=== PATIENT | male | born 1960 | race Caucasian/White ===

== ENCOUNTER 2017-07-17 19:35 | Observation (INO) | payer BC ==
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
[2017-07-17] MEDS: Sodium Chloride 0.9% 1000 ML 1,000 ML IV SCH (20:34)
[2017-07-17 20:40] LABS: BASOPHIL % 0.6 % (0.0-0.4); Basophil (Absolute #) 0.03 (0-0.4); Eosinophil % 3.3 % (0.00-5.0); Eosinophil (Absolute #) 0.18 (0-0.5); Granulocyte Absolute (ANC) 3.98 (1.4-6.9); Granulocytes % 73.9 % (36.0-66.0); Hematocrit 45.4 % (42-50); Lymphocyte (Absolute #) 0.66 (1.0-4.6); Lymphocytes % 12.2 % (24.0-44.0); Mean Cell Volume 93.2 fl (78-100); Mean Corpuscular Hemoglobin 34.9 pg (26-32); Mean Corpuscular Hgb Concent. 37.4 g/dl (32-36); Mean Platelet Volume 10.2 fl (6-9.5); Monocyte (Absolute #) 0.54 (0.0-1.3); Platelet Count 159 K/mm3 (150-450); Red Blood Count 4.87 M/mm3 (4.1-5.6); Red Cell Distribution Width 12.3 % (11.5-14.0); White Blood Count 5.4 K/mm3 (4.0-10.5)
[2017-07-17 20:53] LABS: INR 0.99 (0.8-3.0)
[2017-07-17 20:56] LABS: PTT 34.1 SECONDS (24.1-36.1)
[2017-07-17 20:57] LABS: ALBUMIN 4.5 g/dL (3.5-5.0); ALKALINE PHOSPHATASE 92 U/L (38-126); ANION GAP 12.4 MEQ/L (5-15); BLOOD UREA NITROGEN 12 mg/dL (9-20); CHLORIDE 88 mmol/L (98-107); CK-Creatinine Phosphokinase 58 U/L (55-170); Calcium 9.4 mg/dL (8.4-10.2); Carbon Dioxide 29 mmol/L (22-30); Creatinine 1 0.74 mg/dL (0.66-1.25); Glucose 111 mg/dL (74-106); Potassium 3.7 mmol/L (3.5-5.1); SGOT/AST 35 U/L (17-59); SGPT/ALT 37 U/L (0-50); SODIUM 125 mmol/L (137-145); Total Protein 7.5 g/dL (6.3-8.2)
[2017-07-17 21:06] LABS: NT PRO BNP 91.9 pg/mL (0-900)
[2017-07-17 21:50] LABS: Amphetamine,Urine NEGATIVE (NEGATIVE); Barbiturate,Urine NEGATIVE (NEGATIVE); Benzodiazepine,Urine NEGATIVE (NEGATIVE); Cocaine,Urine NEGATIVE (NEGATIVE); Methadone,Urine NEGATIVE (NEGATIVE); Opiate,Urine NEGATIVE (NEGATIVE); PCP,Urine NEGATIVE (NEGATIVE); THC,Urine NEGATIVE (NEGATIVE)
[2017-07-17] MEDS ORDERED: TYLENOL 325 MG PO PRN (22:16)
[2017-07-17] MEDS ORDERED: DUONEB 0.5-3 MG/3 ml Neb IH PRN (22:16)
[2017-07-17] MEDS ORDERED: Sodium Chloride 0.9% 1000 ML 1,000 ML IV SCH (22:30)
[2017-07-17] MEDS ORDERED: Ecotrin 325 MG ONE (23:07)
[2017-07-18 05:52] LABS: BASOPHIL % 0.4 % (0.0-0.4); Basophil (Absolute #) 0.02 (0-0.4); Eosinophil % 5.5 % (0.00-5.0); Eosinophil (Absolute #) 0.26 (0-0.5); Granulocyte Absolute (ANC) 2.81 (1.4-6.9); Granulocytes % 59.5 % (36.0-66.0); Hematocrit 44.4 % (42-50); Hemoglobin 16.1 gm/dl (12.5-18.0); Lymphocyte (Absolute #) 0.97 (1.0-4.6); Lymphocytes % 20.6 % (24.0-44.0); Mean Cell Volume 95.5 fl (78-100); Mean Corpuscular Hemoglobin 34.6 pg (26-32); Mean Corpuscular Hgb Concent. 36.3 g/dl (32-36); Mean Platelet Volume 10.1 fl (6-9.5); Monocyte (Absolute #) 0.66 (0.0-1.3); Platelet Count 148 K/mm3 (150-450); Red Blood Count 4.65 M/mm3 (4.1-5.6); Red Cell Distribution Width 12.5 % (11.5-14.0); White Blood Count 4.7 K/mm3 (4.0-10.5)
[2017-07-18] MEDS: Sodium Chloride 0.9% 1000 ML 1,000 ML IV SCH (06:25)
[2017-07-18 06:50] LABS: ANION GAP 11.7 MEQ/L (5-15); BLOOD UREA NITROGEN 11 mg/dL (9-20); CHLORIDE 94 mmol/L (98-107); Calcium 8.9 mg/dL (8.4-10.2); Carbon Dioxide 29 mmol/L (22-30); Glucose 109 mg/dL (74-106); SODIUM 131 mmol/L (137-145)
[2017-07-18 07:13] VITALS: BP 135/74; PULSE 67; O2SAT 93
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
[2017-07-18 09:34] LABS: Risk Ratio 4.1
[2017-07-18] MEDS ORDERED: hydroDIURIL 25 MG PO SCH (10:00)
[2017-07-18] MEDS ORDERED: NON-FORMULARY ITEM (Amlodipine Besylate 10 Mg [Norvasc 10 Mg] 10 MG) PO SCH (10:00)
[2017-07-18] MEDS ORDERED: VALSARTAN PO SCH (10:00)
[2017-07-18] MEDS ORDERED: Bystolic 5 MG PO SCH (10:00)
[2017-07-18] MEDS ORDERED: NORVASC 5 MG PO SCH (10:00)
[2017-07-18] MEDS ORDERED: DIOVAN 80 MG PO SCH (10:00)
[2017-07-18] MEDS ORDERED: [UNRECOGNIZED DRUG - OTHER] PO SCH (10:00)
[2017-07-18] MEDS ORDERED: HYDROCHLOROTHIAZIDE PO SCH (10:00)
[2017-07-18] MEDS ORDERED: NON-FORMULARY ITEM (Nebivolol Hcl [Bystolic] 10 MG) PO SCH (10:00)
--- NOTE | 2017-07-18 10:04 | XRAY ---
Exam: Two-view chest (3 images) from 07/17/2017. Indication: Syncope. Findings: Upright PA and 2 lateral images of the chest were obtained. The heart size and contour are normal. The yola and mediastinal structures appear unremarkable. There is mild hyperinflation of the chest. Correlate clinically regarding COPD. A prominent retrosternal airspace and mildly increased AP diameter of the chest are seen. I see no air space infiltrates, vascular congestion, or pleural fluid. No pneumothorax seen. There is minimal biapical pleural thickening/scarring. No abnormal soft tissue lung nodularity is seen. I see no acute osseous process. Mild degenerative changes within the thoracic spine and mild mid dorsal kyphosis are seen. Impression: 1. There is some hyperinflation of the lung cortez suggestive of COPD. Correlate clinically. 2. No focal pneumonic infiltrates, heart failure, or other acute cardiopulmonary disease is seen.
[2017-07-18] MEDS ORDERED: Ecotrin 325 MG PO ONE (22:13)
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
== END 2017-07-18 10:25 | disposition home or self-care (01) ==
LOC: ED 19:35 → MED SURG 22:57
PROVIDERS: ADMIT Family Medicine; ATTEND Family Medicine
DX: R55 Syncope and collapse (principal); I10 Essential (primary) hypertension; Z72.0 Tobacco use
CPT/HCPCS: 36000; 36415; 70450; 71046; 80048; 80053; 80061; 80307; 82550; 83721; 83880; 84484; 85025; 85379; 85610; 85730; 93005; 93041; 93268; 96360; 96361; 99285; G0103; A9270-GY; G0378

== ENCOUNTER 2020-03-30 10:45 | Emergency (ER) | payer BC ==
[2020-03-30] MEDS ORDERED: NORCO 5/325 MG PO ONE (11:00)
[2020-03-30 11:02] VITALS: BP 176/91; PULSE 83; O2SAT 95
[2020-03-30] MEDS ORDERED: NORCO 5/325 MG ONE (11:06)
--- NOTE | 2020-03-30 11:21 | ERPHSYRPT ---
- History of Present Illness Time Seen by Provider: 03/30/20 10:53 Source: patient Exam Limitations: no limitations Patient Subjective Stated Complaint: Pt states "Last night I was putting ice melt out and stepped into a hidden hole with my left foot and ankle went under. I could walk on it a little yesterday but this morning I cannot walk on it." Triage Nursing Assessment: Pt alert and oriented X 3, skin pwd pt ambulates with a limp. Pt left foot and ankle swollen and bruised. CSM X 4. Physician History: 59 years old male presented in the ER with chief complaint of fall with twisting left ankle yesterday. Patient report he was able to walk yesterday but today he is having moderate to severe sharp pain in the left ankle especially on the lateral aspect associated with increasing swelling in the ankle/upper foot. Denies any pain in the foot. Pain is aggravated with weightbearing and movements and better with being still and taking [id number] pain medication. Denies injury anywhere else. Method of Injury: twisted Occurred: yesterday Quality: constant, sharpness Severity of Pain-Max: moderate Severity of Pain-Current: moderate Lower Extremities Pain: ankle: right (Hello) Modifying Factors: Improves With: cold therapy, immobilization, pain medication (No), rest (Thank). Worsens With: movement Associated Symptoms: unable to bear weight Allergies/Adverse Reactions: No Known Drug Allergies Allergy (Verified 03/30/20 11:01) Home Medications: Amlodipine Besylate 10 mg [Norvasc 10 MG] 10 mg PO DAILY 07/17/17 [History] Nebivolol HCl [Bystolic] 10 mg PO DAILY 07/17/17 [History] Valsartan/Hydrochlorothiazide [Valsartan-Hctz 320-25 mg Tab] 1 tablet PO DAILY 07/17/17 [History] Hx Tetanus, Diphtheria Vaccination/Date Given: No Hx Influenza Vaccination/Date Given: Yes Hx Pneumococcal Vaccination/Date Given: No Immunizations Up to Date: Yes Travel Risk - International Travel Have you traveled outside of the country in past 3 weeks: No - Coronavirus Screening Are you exhibiting any of the following symptoms?: No Close contact with a COVID-19 positive Pt in past 14-21 Days: No - Review of Systems Constitutional: No Symptoms Eyes: No Symptoms Ears, Nose, & Throat: No Symptoms Respiratory: No Symptoms Cardiac: No Symptoms Abdominal/Gastrointestinal: No Symptoms Genitourinary Symptoms: No Symptoms Musculoskeletal: No Symptoms Skin: No Symptoms Neurological: No Symptoms Psychological: No Symptoms Endocrine: No Symptoms Hematologic/Lymphatic: No Symptoms - Past Medical History Pertinent Past Medical History: Yes Neurological History: No Pertinent History ENT History: No Pertinent History Cardiac History: Hypertension Respiratory History: Other Endocrine Medical History: No Pertinent History Musculoskeletal History: No Pertinent History GI Medical History: No Pertinent History History: No Pertinent History Psycho-Social History: No Pertinent History Male Reproductive Disorders: No Pertinent History Other Medical History: collapsed lung in 20's - Past Surgical History Past Surgical History: Yes Neuro Surgical History: No Pertinent History Cardiac: No Pertinent History Respiratory: No Pertinent History Gastrointestinal: No Pertinent History Genitourinary: No Pertinent History Musculoskeletal: Other Male Surgical History: No Pertinent History Other Surgical History: reconstructive surgery on left foot - Social History Smoking Status: Current every day smoker How long have you smoked: years Exposure to second hand smoke: Yes Drug Use: none Patient Lives Alone: No - Nursing Vital Signs Nursing Vital Signs: Initial Vital Signs Temperature 98.4 F 03/30/20 10:56 Pulse Rate 83 03/30/20 10:56 Respiratory Rate 20 03/30/20 10:56 Blood Pressure 176/91 03/30/20 10:56 O2 Sat by Pulse Oximetry 95 03/30/20 10:56 Pain Scale Pain Intensity 6 - Physical Exam General Appearance: no apparent distress, alert Eyes, Ears, Nose, Throat Exam: normal ENT inspection, pharynx normal Neck Exam: normal inspection, full range of motion Cardiovascular/Respiratory Exam: normal breath sounds, regular rate/rhythm Gastrointestinal/Abdominal Exam: non-tender, soft Back Exam: normal inspection, normal range of motion Legs Exam: bilateral leg: non-tender, normal inspection, normal range of motion Knees Exam: bilateral knee: non-tender, normal inspection, normal range of motion, no evidence of injury Ankle Exam: right ankle: non-tender, normal inspection, normal range of motion, no evidence of injury, left ankle: bone tenderness (Both malleoli), limited range of motion, pain, soft tissue tenderness, swelling Foot Exam: right foot: normal inspection, bilateral foot: non-tender, normal range of motion, no evidence of injury Neuro/Tendon Exam: normal sensation, normal motor functions, normal tendon functions Mental Status Exam: alert, oriented x 3 Skin Exam: normal color SpO2 Interpretation: normal SpO2: 95 O2 Delivery: Room Air Ordered Tests: Active Orders 24 hr Category Date Time Status ANKLE (3 VIEWS) Stat Exams 03/30/20 11:20 Completed Medication Summary Discontinued Medications Generic Name Dose Route Start Last Admin Trade Name Freq PRN Reason Stop Dose Admin Hydrocodone Bitart/Acetaminophen 1 tab 03/30/20 11:00 03/30/20 11:06 Trimble 5/325 Mg PO 03/30/20 11:01 1 tab STAT ONE Administration Hydrocodone Bitart/Acetaminophen Confirm 03/30/20 11:06 Trimble 5/325 Mg Administered 03/30/20 11:07 Dose 1 tab .ROUTE .STK-MED ONE - Progress Progress: improved, pain not gone completely Progress Note: 03/30/20 11:19 Given Trimble for symptomatic relief in the ER. X-rays showed lateral malleolar fracture. Placed in a splint, recommended outpatient podiatry follow-up. No weightbearing Counseled pt/family regarding: diagnosis, need for follow-up - Departure Departure Disposition: Home Clinical Impression: Ankle fracture, lateral malleolus, closed Qualifiers: Encounter type: initial encounter Fracture alignment: displaced Laterality: left Qualified Code(s): S82.62XA - Displaced fracture of lateral malleolus of left fibula, initial encounter for closed fracture Condition: Stable Critical Care Time: No Referrals: ANGELA THORNTON MD [Primary Care Provider] - Follow Up with PCP/3 days FREDRICK SHEIKH NP [NON-STAFF PHY W/O PRIVILEGES] - (Tomorrow for reevaluation with podiatry) Instructions: Ankle Fracture (DC) Additional Instructions: No weightbearing. Take pain medications as needed. Keep it elevated, apply ice. Follow-up with podiatry for reevaluation tomorrow. Return to ER for any worsening. Prescriptions: Oxycodone HCl/Acetaminophen [Percocet 5-325 mg Tablet] 1 each PO Q6H PRN PRN 3 Days #12 tablet MDD 4 PRN Reason: Pain
--- NOTE | 2020-03-30 11:31 | XRAY ---
Indication: Pain following twisting injury. Comparison: None 3 view left ankle demonstrates minimally displaced lateral malleolus oblique fracture with soft tissue swelling. Incidental tiny heel spurs. No other bony, articular, or soft tissue abnormalities.
== END 2020-03-30 12:20 | disposition home or self-care (01) ==
LOC: ED 10:45
DX: M25.572 Pain in left ankle and joints of left foot (principal); S82.62XA Displaced fracture of lateral malleolus of left fibula, initial encounter for closed fracture; W00.0XXA Fall on same level due to ice and snow, initial encounter; I10 Essential (primary) hypertension; F17.210 Nicotine dependence, cigarettes, uncomplicated
CPT/HCPCS: 29515; 73610; 99284; A9270-GY

== ENCOUNTER 2020-04-08 08:45 | Day surgery (SDC) | payer BC ==
[~2020-04-08 08:45] MED LIST: Lactated Ringers 1,000 ML IV ONE
[2020-04-08] MEDS ORDERED: VANCOCIN 1 GM VIAL IV ONE (08:46)
[2020-04-08] MEDS ORDERED: CEFAZOLIN 2 GM-D5W BAG** 2 GM/50 ML ML IV ONE (09:10)
[2020-04-08] MEDS ORDERED: Lactated Ringers 0 ML IV ONE (09:10)
[2020-04-08] MEDS ORDERED: Lactated Ringers 1,000 ML IV SCH (09:30)
[2020-04-08] MEDS ORDERED: CEFAZOLIN 2 GM-D5W BAG** 2 GM/50 ML ML IV SCH (09:30)
[2020-04-08 09:34] LABS: Hematocrit 40.8 % (42-50); Hemoglobin 14.2 gm/dl (12.5-18.0); Mean Cell Volume 99.8 fl (78-100); Mean Corpuscular Hemoglobin 34.7 pg (26-32); Mean Corpuscular Hgb Concent. 34.8 g/dl (32-36); Mean Platelet Volume 10.2 fl (7.5-11.0); Platelet Count 208 K/mm3 (150-450); Red Blood Count 4.09 M/mm3 (4.1-5.6); Red Cell Distribution Width 11.9 % (11.5-14.0); White Blood Count 5.8 K/mm3 (4.0-10.5)
[2020-04-08] MEDS ORDERED: DUONEB 0.5-3 MG/3 ml Neb IH ONE (09:54)
[2020-04-08] MEDS ORDERED: Versed 2 MG/2 ML Injection ONE (09:56)
[2020-04-08] MEDS ORDERED: Xylocaine-Mpf 2% 5 Ml Vial ONE (09:56)
[2020-04-08] MEDS ORDERED: Zemuron 100 MG/10 ML ONE (09:56)
[2020-04-08] MEDS ORDERED: SUBLIMAZE 250 MCG/5 ML ONE (09:56)
[2020-04-08] MEDS ORDERED: Naropin 0.5% 30 ML VIAL ONE (09:56)
[2020-04-08] MEDS ORDERED: DIPRIVAN 200 MG/20 ML IV ONE (09:56)
[2020-04-08 10:29] LABS: ALKALINE PHOSPHATASE 86 U/L (38-126); ANION GAP 11.3 MEQ/L (5-15); BLOOD UREA NITROGEN 13 mg/dL (9-20); CHLORIDE 97 mmol/L (98-107); Calcium 9.5 mg/dL (8.4-10.2); Carbon Dioxide 31 mmol/L (22-30); Creatinine 1 0.86 mg/dL (0.66-1.25); EST GLOMERULAR FILTRATION RATE > 60.0 ML/MIN; Glucose 101 mg/dL (74-106); Potassium 3.9 mmol/L (3.5-5.1); SGOT/AST 27 U/L (17-59); SGPT/ALT 26 U/L (0-50); SODIUM 135 mmol/L (137-145); Total Protein 7.3 g/dL (6.3-8.2)
[2020-04-08] MEDS ORDERED: BUPIVACAINE 0.5% VIAL IJ ONE (12:07)
[2020-04-08] MEDS ORDERED: XYLOCAINE 1% HCL 20 ML MDV ONE (12:07)
[2020-04-08] MEDS ORDERED: BRIDION 200MG/2ML IV ONE (12:30)
--- NOTE | 2020-04-08 12:39 | XRAY ---
Indication: Left ankle ORIF surgery. Intraoperative fluoroscopy provided for 2 minutes 42 seconds. 10 digital spot images of the left ankle submitted for interpretation demonstrates lateral malleolus fixation plate and screws fixating fracture in good apposition/alignment. Correlate with intraoperative findings/report.
[2020-04-08 14:10] VITALS: O2SAT 97
[2020-04-08 14:46] VITALS: BP 134/65; PULSE 72
--- NOTE | 2020-04-08 15:04 | OP ---
SURGERY DATE/TIME: 04/08/2020 1102 INDICATION FOR SURGERY: The patient suffered supination external rotation ankle fracture that occurred on of last week. He presented to my office after being seen in the emergency room and was indicated on the x-rays that there was medial clear space widening as well as displacement of the fibular fracture which were indications for us to proceed forward with open reduction internal fixation of the left ankle. The patient understands all risks, benefits and complications of the procedure including but not limited to delayed bone healing, nonbone healing, delayed skin healing, potential of wound and potential for post-traumatic arthritis in the future. The patient understands the possibilities and wishes to go forward with surgical intervention at this time to which I agree. PREOPERATIVE DIAGNOSIS: Fibular fracture of the left ankle and medial clear space widening. POSTOPERATIVE DIAGNOSIS: Fibular fracture of the left ankle and medial clear space widening. PROCEDURE: Open reduction internal fixation of left ankle fracture with syndesmosis reduction. SURGEON: Les Melendez DPM. VISUAL AID EXPERT: None. ANESTHESIA: General with a preoperative popliteal block and a postoperative saphenous block. HEMOSTASIS: Thigh tourniquet set to 350 mm of Mercury for 60 minutes total tourniquet time. ESTIMATED BLOOD LOSS: Less than 20 cc. MATERIALS: [employer] A.L.P.S. 7-hole locking composite plate with two - 14 mm 3.5 locking screws, two - 16 mm 3.5 locking screws, two - 18 mm 3.5 nonlocking fully threaded screws and one - 60 mm 3.5 Syndesmotic screw, 2-0 Vicryl, skin kizzy and 1 gm of Vancomycin. INJECTABLES: See anesthesia report for preoperative popliteal block, saphenous block consisting of 5 cc of 1% lidocaine plain and 5 cc of 0.5% bupivacaine plain postoperatively. DESCRIPTION OF PROCEDURE AND FINDINGS: Prior to the patient being brought into the room, a preoperative popliteal block was performed. See anesthesia report for details. Following this and after adequate preoperative assessment with the anesthesia team, the patient was brought into the OR and placed on the OR table in the supine position. General anesthesia was then administered in order sedate the patient and well-padded thigh tourniquet was then applied to the left thigh and set to 350 mm of Mercury. At this time the left lower extremity was prepped and draped in the typical sterile fashion and the left lower extremity was then lowered onto the surgical field. At this time fluoroscopy was brought in and x-ray was obtained demonstrating where the fracture site was. A skin marker was utilized to identify this site and an incision was planned over the posterior aspect of the fibula at this location. Incision was made utilizing a 10 blade being careful to carry the subcutaneous dissection without damaging any neurovascular structures along the way using a combination of blunt and sharp dissection. At this time the fracture site was identified and was cleansed utilizing copious amounts of sterile saline and a dental pick. Following this a reduction forceps was used to reduce the fracture fragment until the fragment was unidentifiable on fluoroscopy and in person. There was no stripping of the periosteum surrounding the fracture site however it was pulled out of the reduction at this time. Following this a 7-hole locking composite A.L.P.S. plate from [employer] was applied to the lateral aspect and the position was checked under fluoroscopy. The plate was then bent in order to better suit the anatomy of the patient. Following this a Whirlybird was then utilized to get the plate to contour to the fracture site. Following this the distal holes were first filled utilizing a nonlocker at the most distal extent and then a series of locking screws filling from distal to proximal. At this time this was checked under fluoroscopy and deemed to be adequate. Bicortical fixation was made at the proximal extent and the unicortical locking screws were utilized at the distal extent of the fracture site so as not to violate the tibiotalar joint. At this time attention then was directed under fluoroscopy and a live view of the stress fluoroscopy. Following this it appeared that there was some gapping of the syndesmosis and the decision to place a 60 mm 3.5 fully threaded syndesmotic screw was performed this was checked under multiple views. Prior to placing the screw and the tenaculum in order compress the syndesmosis was applied to the anterior aspect of the proximal one-third of the anterior one-third of the medial malleolus and over the plate on the lateral side in order to best reduce the fracture site. Following this the screw was advanced and made tricortical fixation this was checked under fluoroscopic imaging and deemed to be adequate. At this time the incision was then cleansed with copious amounts of sterile saline. 2-0 Vicryl was utilized to coapt subcutaneous skin layers and skin kizzy were utilized to karley the skin edges and coapt the skin in an everted-type fashion. The leg was then cleansed with sterile saline and dried. Betadine was applied to the incision site and Adaptic was applied to the medial and lateral aspect. 4x4's were then applied, two Kerlix, cast padding and a posterior splint with sugar tong was then applied to the left lower extremity with the foot 90 degrees relative to the longitudinal aspect of the leg. The patient was then reversed from anesthesia. The tourniquet was let down at 60 minutes total tourniquet time. The patient was returned to postoperative anesthesia care unit with vital signs stable and vascular status intact. Patient handled the anesthesia as well as the procedure without complication. Postoperative orders as indicated in the postoperative notes.
--- NOTE | 2020-04-08 15:25 | XRAY ---
2 minutes and 42 seconds fluoroscopy time in surgery for ORIF left ankle.
== END 2020-04-08 14:35 | disposition home or self-care (01) ==
LOC: SDC 08:45
PROVIDERS: ATTEND Podiatrist Foot & Ankle Surgery
DX: S82.832A Other fracture of upper and lower end of left fibula, initial encounter for closed fracture (principal); S93.492A Sprain of other ligament of left ankle, initial encounter; Z79.899 Other long term (current) drug therapy
CPT/HCPCS: 27814; 27829; 36415; 64450; 73600; 76000; 76942; 80053; 85027; 94640; J0690; J2250; J2704; J2795; J3010; J3370; A9270-GY

== ENCOUNTER 2020-06-29 05:51 | Day surgery (SDC) | payer BC ==
[2020-06-29] MEDS ORDERED: Lactated Ringers 1,000 ML IV SCH (07:00)
[2020-06-29] MEDS ORDERED: DIPRIVAN 200 MG/20 ML IV ONE ×3 (07:19→07:54)
[2020-06-29 09:00] VITALS: BP 157/85; PULSE 68; O2SAT 99
--- NOTE | 2020-06-29 09:51 | OP ---
SURGERY DATE/TIME: 06/29/2020717 PREOPERATIVE DIAGNOSIS: Positive Cologuard. POSTOPERATIVE DIAGNOSIS: Sigmoid polyps x2, rectal polyp x1. PROCEDURE: Diagnostic colonoscopy. SURGEON: Herson Sawyer M.D. ANESTHESIA: MAC by Vladimir Tran CRNA. ESTIMATED BLOOD LOSS: Minimal. SPECIMENS: Two hot snare polypectomies and one was from the distal sigmoid colon and one was from the rectum and then there was one hot forceps polypectomy from the proximal sigmoid. DESCRIPTION OF PROCEDURE: After informed written consent was obtained, the patient was taken to the endoscopy suite. He underwent monitored anesthesia and was placed in left lateral decubitus position. After adequate level of anesthesia was titrated, a digital rectal exam showed normal sphincter tone and no internal lesions. The scope was inserted into the rectum and sequentially the entire colonic mucosa was traversed. The level of cecum was reached and verified with direct visualization of ileocecal valve. Upon withdrawal there was a small sessile polyp in the proximal sigmoid colon which was grasped with forceps, cauterized and removed in its entirety with good results. Upon further withdrawal there was a large pedunculated, broad based polyp in the distal sigmoid which was grasped with snare at the base, cauterized and then was removed through suction and retrieved in the polyp trap. The area appeared to be hemostatic with complete removal of the lesion after the polyp was retrieved and the site was inspected. Upon further withdrawal in the proximal rectum just below the third valve of Joshi there was another large sessile polyp which was likewise snared, cauterized at the base and removed in its entirety with good results. The polyp was retrieved and sent for pathology testing in a separate container. Retroflexion was performed prior to withdrawal showed no internal lesions. The scope was removed and the patient was transferred to the recovery room in good condition.
== END 2020-06-29 08:05 | disposition home or self-care (01) ==
LOC: SDC 05:51
PROVIDERS: ATTEND Family Medicine
DX: D12.8 Benign neoplasm of rectum (principal); K63.5 Polyp of colon; R19.5 Other fecal abnormalities; I10 Essential (primary) hypertension
CPT/HCPCS: 88305; J2704

== ENCOUNTER 2023-08-07 06:36 | Day surgery (SDC) | payer BC ==
[2023-08-07] MEDS ORDERED: MARCAINE 0.25% PF/ EPI 1:200,000 IJ ONE ×2 (06:37)
[2023-08-07] MEDS ORDERED: CEFAZOLIN 2 GM-D5W BAG** 2 GM/50 ML ML IV ONE (07:10)
[2023-08-07] MEDS ORDERED: Lactated Ringers 1,000 ML IV ONE (07:10)
[2023-08-07] MEDS: CEFAZOLIN 2 GM-D5W BAG** 2 GM/50 ML ML IV SCH (07:16)
[2023-08-07] MEDS: Lactated Ringers 1,000 ML IV SCH (07:16)
[2023-08-07 07:30] LABS: Hemoglobin 15.8 g/dL (13.7-17.5); Mean Corpuscular Hemoglobin 35.3 pg (25.7-32.2); Mean Corpuscular Hgb Concent. 36.7 g/dL (32.3-36.5); Mean Platelet Volume 9.8 fL (9.4-12.4); Platelet Count 166 x10^3/uL (163-337); Red Blood Count 4.48 x10^6/uL (4.63-6.08); Red Cell Distribution Width 11.7 % (11.6-14.4); White Blood Count 3.8 x10^3/uL (4.23-9.07)
[2023-08-07 07:42] LABS: ALBUMIN 4.4 g/dL (3.5-5.0); ANION GAP 14.1 MEQ/L (5-15); BILIRUBIN,TOTAL 0.7 mg/dL (0.2-1.3); Calcium 9.3 mg/dL (8.4-10.2); Creatinine 1 0.62 mg/dL (0.66-1.25); EST GLOMERULAR FILTRATION RATE 106.1 ML/MIN; Total Protein 7.5 g/dL (6.3-8.2)
[2023-08-07] MEDS ORDERED: Decadron 4 MG INJ ONE (08:34)
[2023-08-07] MEDS ORDERED: Zofran 4 MG/2 ML VIAL ONE (08:34)
[2023-08-07] MEDS ORDERED: TORAdol 30 mg Injection ONE (08:34)
[2023-08-07] MEDS ORDERED: Xylocaine-Mpf 2% 5 Ml Vial ONE (08:34)
[2023-08-07] MEDS ORDERED: SUBLIMAZE 100 MCG/2 ML ONE (08:34)
[2023-08-07] MEDS ORDERED: Versed 2 MG/2 ML Injection ONE (08:34)
[2023-08-07] MEDS ORDERED: DIPRIVAN 200 MG/20 ML IV ONE (08:34)
--- NOTE | 2023-08-07 08:34 | XRAY ---
Indication: Preop exam. Comparison: July 17, 2017 Portable chest again hyperinflated and clear. Heart and mediastinal structures within normal limits. Bony thorax intact again with osteopenia and mild degenerative changes. Impression: Continued nonacute hyperinflated chest.
[2023-08-07] MEDS ORDERED: PHENYLEPHRINE HCL ONE (09:07)
[2023-08-07] MEDS ORDERED: Thrombin-JMI 5000 UNITS TP ONE (09:16)
[2023-08-07 11:21] VITALS: RESP 16
[2023-08-07 11:30] VITALS: O2SAT 94
[2023-08-07 11:42] VITALS: BP 148/82; PULSE 78; TEMP 97.2
--- NOTE | 2023-08-08 09:49 | OP ---
SURGERY DATE/TIME: 08/07/2023 [id number] PREOPERATIVE DIAGNOSIS: Left olecranon bursitis. POSTOPERATIVE DIAGNOSIS: Left olecranon bursitis. PROCEDURE: Excision left olecranon bursa. SURGEON: Marco Fabian II, DO. ANESTHESIA: General. DESCRIPTION OF PROCEDURE AND FINDINGS: The patient was identified and informed consent was obtained. The patient was taken to the operative suite and placed in the supine position on the operating table where the general anesthetic was administered. Once an appropriate level of anesthesia had been obtained, tourniquet was placed high on the left upper extremity which was then prepped and draped in the usual sterile fashion. A standard time-out was taken. At this point, the arm was exsanguinated and tourniquet elevated to 250 mmHg. An incision was carried out transversely over the olecranon bursa. Skin was incised and dissection was then gently carried out through the subcutaneous tissue. The bursa was then shelled out with a pair of baby Metzenbaum scissors, care was taken to protect the soft tissues such that there was no buttonholing. The bursa was then shelled out and removed in toto and the specimen was then sent to Pathology for further evaluation. Once the bursa had been fully excised, the tourniquet was deflated and hemostasis was obtained with thrombin and Gelfoam as well as the electrocautery. The wound was then closed with 2-0 chromic, 2-0 Monocryl, and kizzy. The area was then infiltrated with 10 mL of 0.25% Marcaine with epinephrine. Adaptic, 4 x 4's, and a sterile dressing applied. The patient was then placed into a sling, transferred to the cart and taken to recovery room in satisfactory condition, having tolerated the procedure well.
== END 2023-08-07 11:48 | disposition home or self-care (01) ==
LOC: SDC 06:36
PROVIDERS: ATTEND Orthopaedic Surgery
DX: M70.22 Olecranon bursitis, left elbow (principal); I10 Essential (primary) hypertension; Z79.899 Other long term (current) drug therapy
CPT/HCPCS: 24105; 36415; 71045; 80053; 85027; 93005; J0690; J1100; J1885; J2250; J2371; J2405; J2704; J3010